=== PATIENT | male | born 1985 | race Caucasian/White ===

== ENCOUNTER 2020-05-06 21:50 | Emergency (ER) | payer OTHER ==
--- NOTE | 2020-05-06 22:17 | ED ---
General Adult HPI - General Chief complaint: Upper Respiratory Infection Stated complaint: Dizziness, SOB Time Seen by Provider: 05/06/20 22:15 Source: patient Mode of arrival: wheelchair Limitations: no limitations - History of Present Illness Initial comments: Patient is a 35-year-old male presents emergency Department with chief complaint of cough, sinus congestion and shortness of breath. States symptoms started today. Patient reports the symptoms started since yesterday. Patient states he is currently in a rehab facility and states there are other sick people around him so there could be potential for Covid exposure. Patient reports he does have clear bilateral rhinorrhea and a productive cough with white sputum production. He does report shortness of breath after coughing fits. He is a daily smoker of cigarettes. Reports feeling feeling warm but never actually taken her temperature.. Denies history of asthma or COPD. He denies any nausea vomiting diarrhea or chest pain. He denies taking medication to alleviate the symptoms. Denies any otalgia but does have some sore throat.he also reports generalized body aches. - Related Data Previous Rx's Medication Instructions Recorded Azithromycin [Zithromax Z-pack] 0 mg PO DIRECTED #1 pack 05/06/20 Allergies Allergy/AdvReac Type Severity Reaction Status Date / Time No Known Allergies Allergy Verified 05/06/20 21:57 Review of Systems ROS Statement: Those systems with pertinent positive or pertinent negative responses have been documented in the HPI. ROS Other: All systems not noted in ROS Statement are negative. Past Medical History Past Medical History: No Reported History History of Any Multi-Drug Resistant Organisms: None Reported Past Surgical History: Orthopedic Surgery Additional Past Surgical History / Comment(s): sternum surgery Past Psychological History: No Psychological Hx Reported Smoking Status: Current every day smoker Past Alcohol Use History: None Reported Past Drug Use History: Cocaine General Exam Limitations: no limitations General appearance: alert, in no apparent distress Head exam: Present: atraumatic, normocephalic, normal inspection Eye exam: Present: normal appearance, PERRL, EOMI Pupils: Present: normal accommodation ENT exam: Present: normal exam, normal oropharynx, mucous membranes moist Neck exam: Present: normal inspection, full ROM. Absent: tenderness Respiratory exam: Present: normal lung sounds bilaterally. Absent: respiratory distress, wheezes, rales Cardiovascular Exam: Present: regular rate, normal rhythm, normal heart sounds GI/Abdominal exam: Present: soft. Absent: distended, tenderness, guarding Extremities exam: Present: normal inspection, full ROM. Absent: tenderness Back exam: Present: normal inspection, full ROM. Absent: tenderness Neurological exam: Present: alert, oriented X3 Psychiatric exam: Present: normal affect, normal mood Skin exam: Present: warm, dry, intact, normal color Course Vital Signs 05/06/20 05/07/20 21:54 00:00 Temperature 98.3 F 98.0 F Pulse Rate 102 H 77 Respiratory 20 16 Rate Blood Pressure 137/85 138/78 O2 Sat by Pulse 98 97 Oximetry Medical Decision Making - Medical Decision Making Patient is a 35-year-old male presenting to the emergency department with a chief complaint of cough, congestion and shortness of breath. On exam patient is not in any respiratory distress. Lungs are clear to auscultation bilaterally. Patient is a daily smoker. Chest x-ray is unremarkable. Currently testing pending. He is in a rehab facility where other patients have covid possibly. Patient's vitals are stable in the ED. He is afebrile. Patient advised to self isolate the best his abilities for the next 2 days until the results of the covert testing revealed. EKG shows sinus rhythm. He was also advised to take Tylenol only if he develops fever. Strict return parameters were thoroughly discussed the patient is understanding and agreeable. Case discussed with physician. Disposition Clinical Impression: Cough, Acute upper respiratory infection Disposition: HOME SELF-CARE Condition: Stable Instructions (If sedation given, give patient instructions): Upper Respiratory Infection (ED) Additional Instructions: Take prescribed medication as directed. Follow-up with the primary care physician. Return to emergency department if symptoms worsen. Take Tylenol for fever only. Sulfa isolate until covert testing results are provided to you Prescriptions: Azithromycin [Zithromax Z-pack] 0 mg PO DIRECTED #1 pack Is patient prescribed a controlled substance at d/c from ED?: No Referrals: None,Stated [Primary Care Provider] - 1-2 days Time of Disposition: 23:29
--- NOTE | 2020-05-06 23:05 | XR ---
EXAMINATION TYPE: XR chest 2V DATE OF EXAM: 05/06/2020 COMPARISON: NONE HISTORY: Cough TECHNIQUE: 2 views FINDINGS: Heart and mediastinum are normal. Lungs are clear of consolidation. There are no hilar mass es. Costophrenic angles are clear. Bony thorax is intact. IMPRESSION: Normal chest.
[2020-05-07 00:16] VITALS: BP 138/78; PULSE 77; RESP 16; TEMP 98
== END 2020-05-07 | disposition home or self-care (01) ==
LOC: EC 21:50
DX: J06.9 Acute upper respiratory infection, unspecified (principal); F17.210 Nicotine dependence, cigarettes, uncomplicated; Z20.828 Contact with and (suspected) exposure to other viral communicable diseases
CPT/HCPCS: 93005; 71046; 99283; U0003